=== PATIENT | male | born 1955 | race Caucasian/White ===

== ENCOUNTER 2019-01-28 18:59 | Emergency (ER) | payer OTHER, SELFPAY ==
[2019-01-28 19:00] VITALS: BP 147/88; PULSE 72; RESP 18; TEMP 36.7; O2SAT 96; BMI 23.0
[2019-01-28 19:13] VITALS: O2SAT 96
--- NOTE | 2019-01-28 19:46 | ED.DCSUM_ITS ---
- ER Visit Summary Date of Service: 01/28/19 Chief Complaint: Fall History of Present Illness: The patient is a 64 M who presents after a fall that occurred tonight. Patient was intoxicated and fell and hit the corner of the wall. Son witnessed the fall and states patient did not have any loss of consciousness. Son states the patient is having bleeding from his head. Patient denies any paresthesias or weakness. Patient does not know when his last tetanus immunization was. Patient denies any pain. Patient denies any visual changes. Patient denies any nausea or vomiting. Physical Examination: Vital signs are stable. Patient is afebrile. Patient is in no acute distress. Cranial nerves II through XII are intact. Strength is 5/5 bilateral knee upper and lower extremities. There are no sensory deficits noted. There is a 8 cm full-thickness zigzag linear laceration on the top of the scalp. There is moderate bleeding. There is no bony crepitance or step-off noted. There are no foreign bodies noted. Emergency Department Course and Treatment: Patient was given a tetanus booster. The wound was cleaned and irrigated with copious amounts of normal saline. Wound was anesthetized with 1% lidocaine with epinephrine. The wound was closed with 15 simple maribel. Patient tolerated the procedure well. Dressing was applied. Patient was instructed to follow-up with his primary care physician in 5 to 7 days. Patient was instructed to avoid alcohol. Patient was instructed to return if worse in any way. Patient and his son understood and were agreeable with the plan. All questions were answered. Disposition: Discharge home Impression: Scalp laceration This note was generated with [employer] dictation software. It may contain incorrect words, spelling, and punctuation that were not noted in review of the chart prior to signing ED Disposition - Plan for ED Patient: Disposition: Home or Assisted Living Diagnosis: Scalp laceration Instructions: HEAD INJURY, No Wake-Up (Adult), LACERATION, Scalp Referrals: NOT,DEFINED [NON-STAFF] - 5-7 Days
[2019-01-28] MEDS: Diphth,Pertuss(Acell),Tet Vac 0.5 ML Vial IM (19:52)
== END 2019-01-28 20:18 | disposition home or self-care (01) ==
PROVIDERS: Emergency Provider Emergency Medicine
DX: S01.01XA Laceration without foreign body of scalp, initial encounter (principal); W01.198A Fall on same level from slipping, tripping and stumbling with subsequent striking against other object, initial encounter; Y93.9 Activity, unspecified; Y92.89 Other specified places as the place of occurrence of the external cause; Y99.9 Unspecified external cause status; Z23 Encounter for immunization; Z72.0 Tobacco use; F10.129 Alcohol abuse with intoxication, unspecified; Y90.9 Presence of alcohol in blood, level not specified
CPT/HCPCS: 12004; 90471; 90715; 99285

== ENCOUNTER 2019-02-05 14:17 | Emergency (ER) | payer OTHER, SELFPAY ==
[2019-02-05 14:18] VITALS: BP 134/84; PULSE 77; RESP 18; TEMP 36.4; O2SAT 96; BMI 25.7
--- NOTE | 2019-02-05 14:34 | ED.VISSUMM ---
- ER Visit Summary Date of Service: 02/05/19 Chief Complaint: Staple removal History of Present Illness: The patient is a 64 M with no primary care physician. He reports that he had maribel put into his scalp 9 days ago. He would like to have these removed. He denies any complications. No pain in the area. No fever, chills, nausea, vomiting, or other constitutional symptoms. Physical Examination: Vitals: Stable. Afebrile. General: Well-nourished and well-developed. Head: Normocephalic atraumatic. Well-healed laceration to his scalp with maribel present. No erythema, induration, or fluctuance. Neck: Supple, no lymphadenopathy. No JVD. Nontender. Cardiovascular: Regular rate and rhythm. No murmurs. Respiratory: No respiratory distress. Clear to auscultation bilaterally. Abdominal: Soft, nontender, nondistended, normal bowel sounds. No guarding, rebound, or peritoneal signs. Back: Nontender. Extremities: Nontender, no edema. Skin: Normal color, no rash. Neurologic: Alert and oriented ?3. Cranial nerves II through XII are intact. Normal strength and sensation. Psych: Normal affect. Emergency Department Course and Treatment: Patient had 15 maribel removed. He tolerated it well. Treatment Plan: Patient will be discharged instructions to follow-up the [facility] as needed. Return to the emergency department for any worsening symptoms. Disposition: To home in improved and stable condition. Impression: 1. Staple removal. This note was generated with [employer] dictation software. It may contain incorrect words, spelling, and punctuation that were not noted in review of the chart prior to signing ED Disposition - Plan for ED Patient: Disposition: Home or Assisted Living Instructions: SUTURE REMOVAL, No Complication Referrals: [facility] [NON-STAFF] - As Needed
== END 2019-02-05 14:45 | disposition home or self-care (01) ==
LOC: ED 14:43
PROVIDERS: Emergency Provider Emergency Medicine
DX: Z48.02 Encounter for removal of sutures (principal); F17.210 Nicotine dependence, cigarettes, uncomplicated
CPT/HCPCS: 99282

== ENCOUNTER 2023-03-24 01:48 | Emergency (ER) | payer SELFPAY ==
[2023-03-24 01:49] VITALS: BP 159/86; PULSE 108; RESP 12; TEMP 36.5; O2SAT 95; BMI 23.0
[2023-03-24] MEDS: Lidocaine 2% (20 ml mdv) 20 ML Vial INFILT (02:15)
[2023-03-24] MEDS: Gelfoam 12-7 MM Sponge (1) 1 EACH TOPICAL (02:16)
--- NOTE | 2023-03-24 02:49 | EX.ED.DYSGE1 ---
HPI History of Present Illness Chief Complaint: Laceration Informant: patient Narrative Narrative: Patient is a 68-year-old male who denies any past medical history. He states he is right-hand dominant. He reports that he cut his left index finger this evening but he is unsure how . He denies any need for tetanus update. He denies any other injury. He states he cannot get the bleeding to stop at home and therefore came in for evaluation. PFSH PFS Medical History no medical history Home Medications NK 01/28/19 [History Last Taken Unknown] Allergy/AdvReac Type Severity Reaction Status Date / Time No Known Allergies Allergy Verified 03/24/23 01:52 Social History Smoking Status: Heavy Smoker (>10/day) ROS ROS ED Constitutional Constitutional ED: Denies chills or fever(s) Eyes Eyes: Denies change in vision ENT ENT ED: Denies sore throat Cardiovascular Cardiovascular: Denies chest pain or palpitations Respiratory/Chest Respiratory/Chest: Denies cough or dyspnea Gastrointestinal Gastrointestinal: Denies abdominal pain, diarrhea, nausea or vomiting Genitourinary Genitourinary ED: Denies dysuria Musculoskeletal Musculoskeletal: Reports other Details: Positive left index finger cut/pain Integumentary Reports other Details: Laceration left index finger ; Denies rash Neurologic Neurologic: Denies headache(s), paresthesias or weakness Hematologic/Lymphatic Hematologic/Lymphatic: Denies easy bleeding or easy bruising EXAM Physical Exam Const Vital Signs: 03/24/23 01:49 Temperature 97.7 F L Temperature Source Temporal Pulse Rate 108 H Respiratory Rate 12 Blood Pressure 159/86 H Blood Pressure Mean 110 Pulse Ox 95 Oxygen Delivery Method Room Air Positive well nourished and well developed General Appearance ED: well developed HEENT HEENT Narrative: Normocephalic atraumatic Eyes PERRL and EOMs intact bilaterally Neck supple Neck Narrative: No bony deformity or step-off of the cervical spine no midline pain on palpation Chest Wall palpation of chest normal Resp normal respiratory effort and clear to auscultation bilaterally Cardio regular rate and regular rhythm Back/Spine Back/Spine Narrative: No bony deformity or step-off of the thoracic or lumbar spine no midline pain on palpation Extremity Extremity Narrative: Left upper extremity is neurovascularly intact; AIN/PIN are intact and normal. Patient has full active range of motion. No subungual hematoma. No ligamentous or tendon injury noted. Patient did sustain 2 lacerations to the volar aspect of the left index finger. The first laceration is dermal layer deep roughly half centimeter wide and 2 cm long with minimal ooze of blood and no retained foreign body. The second laceration is subcutaneous layer deep roughly 2 cm in length with minimal ooze of blood and no foreign body but the wound is jagged in nature and there is a small avulsion of the most proximal aspect Neuro oriented x3, CN's II-XII intact bilaterally and no sensory deficits noted Sensorium / Orientation: alert Motor Exam: strength 5/5 throughout Psych mental status grossly normal Skin Skin Narrative: Laceration of the left index finger as documented above MDM MDM MDM Narrative Medical decision making narrative: Patient arrived to the ER with a laceration of his left index finger. He is unsure of how he sustained the laceration but by exam there is no obvious bony deformity joint effusion joint dislocation or signs of ligamentous or tendon injury. We discussed obtaining a x-ray to rule out underlying bony derangement or potential foreign body but patient does not want one at this time as I have low clinical suspicion based on his exam. We also discussed updating his tetanus based on the laceration but patient does not want this provided either. Therefore the patient underwent a digital block for anesthesia and closure as documented below and is otherwise safe for discharge Patient had left index finger cleaned with chlorhexidine. It was anesthetized with a total of 8 mL of 2% lidocaine without epinephrine in digital block fashion. The wound was then copiously irrigated with normal saline. The more distal laceration was approximated with manual pressure and then closed using Dermabond. The more proximal laceration was closed using five 4-0 Ethilon sutures in simple interrupted fashion. As the most proximal aspect of this wound was completely avulsed Gelfoam was then placed over top the open area of tissue and the wound was covered with a dressing. Patient tolerated the procedure well without complication. History & Record Review Discussion w/independent historian: Patient Discharge Plan Triage Chief Complaint: Laceration ED Provider: Dionte Jon Dx/Rx/DC Orders Clinical Impression: Laceration of left index finger Instructions: ED Laceration, All Closures Prescriptions: No Action NK Primary Care Provider: Care Physician,No Primary Referrals: Hi Wen MD [STAFF PHYSICIAN] - Care Physician,No Primary [Primary Care Provider] - Activity Restrictions/Additional Instructions: Please return to the ER or see the family doctor in 7 to 10 days for suture removal. The Dermabond/glue will fall off the other laceration in 10 to 14 days. Please return to the ER if you have any further concerns Disposition Disposition: Home, Self Care Discharge Date/Time: 03/24/23 03:01
--- NOTE | 2023-03-24 02:57 | ED.RN ---
Pt admittedly under influence of alcohol. Pt keeps yelling at staff to hurry up and get him taken care of so he can leave. Pt states he has been here for over 3 hours. Pt unstable on feet. Pt strongly encouraged to stay in ER until he has a ride home or is sober enough to walk home. Multiple staff members and ER physician attempted to talk pt into staying. Pt refused and poorly ambulated out of department. [place] PD called to inform of pt leaving, PD to check on pt.
--- NOTE | 2023-03-24 02:58 | ED.RN ---
PT STRONGLY ADVISED TO REMAIN IN ED UNTIL HE HAS A RIDE HOME. PT IS INTOXICATED, REFUSES TO CALL ANYONE FOR A RIDE, INSISTS HE CAN WALK. PT ADAMANTLY REFUSES TO STAY IN ROOM, YELLS AT STAFF WHEN ATTEMPTNG TO REDIRECT. PT AMBULATED OUT OF DEPARTMENT. CAESAR LUCAS UPDATED ON SITUATION.
== END 2023-03-24 03:01 | disposition home or self-care (01) ==
PROVIDERS: Emergency Provider Emergency Medicine; Visit Provider Emergency Medicine
DX: S61.211A Laceration without foreign body of left index finger without damage to nail, initial encounter (principal); F17.200 Nicotine dependence, unspecified, uncomplicated
CPT/HCPCS: 12002; 99282